=== PATIENT | female | born 1980 | race Hispanic/Latino ===

== ENCOUNTER → 2024-06-03 | Outpatient (CLI) | payer BC ==
--- NOTE | 2024-06-03 12:59 | HMCIMG ---
MAMMO SCREENING BILATERAL HISTORY: Screening mammogram. COMPARISON: None TECHNIQUE: Bilateral screening mammogram with CAD was performed with craniocaudal and mediolateral oblique projections. FINDINGS: The breasts are extremely dense which lowers the sensitivity of mammogram. If needed, MRI may be performed per referring physician request. There is no evidence of a dominant mass, or suspicious microcalcification. There is no evidence of nipple retraction or skin thickening. IMPRESSION: 1. Bilateral dense breasts. No dominant mass is seen to suggest a malignant process. Patient was entered into a reminder system with a target due date for their next mammogram. BI-RADS: CATEGORY 2: BENIGN FINDINGS Recommend monthly self breast exam as well as annual clinical examination. A negative x-ray should not delay biopsy if a dominant or clinically suspicious mass is present, since 8-10% of cancers are not identified by mammography. Dense breasts particularly, may obscure an underlying neoplasm. Some of these may be detected clinically and therefore, clinical examination is an essential part of breast evaluation.
== END | disposition home or self-care (01) ==
LOC: RAH 11:34
PROVIDERS: ATTEND Family Medicine
DX: Z12.31 Encounter for screening mammogram for malignant neoplasm of breast (principal); R92.30 Dense breasts, unspecified
CPT/HCPCS: 77067

== ENCOUNTER → 2024-06-22 | Outpatient (CLI) | payer BC ==
--- NOTE | 2024-06-22 15:09 | HMCSR ---
APPROVED REPORT EXAM: Two-dimensional and M-mode echocardiogram with Doppler and color Doppler. INDICATION ICD: 2D Dimensions RVDd4.1 cmLVEF(%)75.7 (>50%)LVED Vol(simp.)80.6 mL IVSd0.5 (0.7-1.1cm)FS(%)44 %LVES Vol(simp.)29.6 mL LVDd4.3 (3.8-5.6cm)LA (2D)3.0 (1.6-4.0cm)LVEF(%, simp.)63 % PWd0.6 (0.7-1.1cm)Ao Root(2D)2.6 (2.0-3.7cm)LA ESV INDEX (4CH)22.30 mL/m2 IVSs1.2 cmLVOT diam1.8 (1.8-2.4cm)LA ESV INDEX (2CH)34.40 mL/m2 LVDs2.4 (2.5-4.0cm)LA ESV INDEX (BP)28.40 mL/m2 PWs1.4 cm M-Mode Dimensions EPSS0.6 cm LA (MM)2.6 (1.6-4.0cm) Ao Root(MM)2.3 (2.0-3.7cm) Aortic Valve AoV VTI0.3 mAo Mean GR3.0 mmHgLVOT VTI0.21 m (VMAX)2.0 cm2AVA (VTI) 2.0 cm2 Mitral Valve MV E Vmax77.1 cm/sDECEL Hrch636 ms MV A Vmax54.3 cm/sP 1/2 T50 ms E/A ratio1.4MVA (PHT)4.4 cm2 TDI E/E' Medial7.4E/E' Lateral6.8 Medial E' Peak V10.40 cm/sLateral E' Peak V11.30 cm/s Tricuspid Valve TR Vmax2.3 m/s TR Peak GR22.1 mmHg Left Ventricle The left ventricle is normal size. There is normal left ventricular wall thickness. LVEF is 60-65%. T he left ventricular diastolic function is normal. Right Ventricle The right ventricle is normal size. The right ventricular systolic function is normal. Atria The left atrium size is normal. Atrial septum is aneurysmal. The right atrium size is normal. Aortic Valve The aortic valve is normal in structure. No aortic regurgitation is present. There is no aortic valvu lar stenosis. Mitral Valve The mitral valve is normal in structure. Mitral regurgitation is mild. There is no mitral valve steno sis. Tricuspid Valve The tricuspid valve is normal in structure. There is trace tricuspid valve regurgitation noted. Pulmonic Valve The pulmonary valve is normal in structure. There is no pulmonic valvular regurgitation. Great Vessels The aortic root is normal in size. The IVC is normal in size and collapses >50% with inspiration. Pericardium There is no pericardial effusion. Other Information Quality : GoodRhythm : NSR Conclusion LVEF is 60-65%. Mitral regurgitation is mild. Atrial septum is aneurysmal.
== END | disposition home or self-care (01) ==
LOC: RAH 12:37
PROVIDERS: ATTEND Family Medicine
DX: Z82.49 Family history of ischemic heart disease and other diseases of the circulatory system (principal)
CPT/HCPCS: 93306

== ENCOUNTER → 2024-09-13 | Outpatient (CLI) | payer BC ==
--- NOTE | 2024-09-13 10:41 | HMCIMG ---
US BREAST BILATERAL REASON: unspecified lump on breast. COMPARISON: Mammogram from 06/03/2024 TECHNIQUE: Bilateral breast ultrasound study was performed. FINDINGS: Over the region of interest in the retroareolar region of left breast, there is hypoechoic nodule measuring 10 x 8 x 9 mm most likely related to fibroadenoma. Six-month follow-up study may be helpful. There are bilateral axillary lymph nodes with largest on the left measuring 2.5 cm and on the right measuring 2.1 cm. IMPRESSION: Left breast nodule in the retroareolar region at the region of interest measuring 10 mm may be related to fibroadenoma. Six-month follow-up study would be helpful. CATEGORY 3: PROBABLE BENIGN-SHORT INTERVAL FOLLOWUP SUGGESTED Recommend monthly self breast exam as well as annual clinical examination.
== END | disposition home or self-care (01) ==
LOC: RAH 08:35
PROVIDERS: ATTEND Family Medicine
DX: N63.21 Unspecified lump in the left breast, upper outer quadrant (principal); N63.42 Unspecified lump in left breast, subareolar